=== PATIENT | male | born 1995 | race Caucasian/White ===

== ENCOUNTER 2017-04-10 22:38 | Emergency (ER) | payer OTHER ==
[~2017-04-10] VITALS: Ht 182.9 cm; Wt 107.5 kg
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
[2017-04-10] MEDS ORDERED: QUETIAPINE FUMA50 M1 PO (23:30)
[2017-04-10] MEDS ORDERED: VYVANSE40 M1 PO (23:30)
[2017-04-10] MEDS ORDERED: PRAZOSIN HCL1 M1 PO (23:30)
[2017-04-11 01:04] LABS: ABSOLUTE BASOPHIL COUNT 0.1 /CUMM (0.0-0.2); ABSOLUTE EOSINOPHIL COUNT 0.3 /CUMM (0.0-0.7); ABSOLUTE GRANULOCYTE CT 6.6 /CUMM (1.4-6.5); ABSOLUTE LYMPH COUNT 2.2 /CUMM (1.2-3.4); ABSOLUTE MONOCYTE COUNT 0.9 /CUMM (0.10-0.60); BASOPHIL % 0.8 % (0.0-2.0); EOSINOPHIL % 3.2 % (0-5); GRANULOCYTE % 64.8 % (42.2-75.2); HEMATOCRIT 43.8 % (42-52); MEAN CORPUSCULAR HGB CONC 33.5 G/DL (33.0-37.0); MEAN CORPUSCULAR VOLUME 86.7 FL (80.0-94.0); MEAN PLATELET VOLUME 7.4 FL (7.4-10.4); PLATELET COUNT 229 /CUMM (130-400); RBC DISTRIBUTION WIDTH 12.8 % (11.5-14.5); RED BLOOD CELL CT 5.06 /CUMM (4.70-6.10); WHITE BLOOD CELL COUNT 10.1 /CUMM (4.8-10.8)
--- NOTE | 2017-04-11 01:15 | RADIOLOGY REPORT ---
EXAMINATION: XR PORTABLE CHEST CLINICAL INFORMATION: Shortness of breath COMPARISON: None TECHNIQUE: Portable frontal view of the chest was obtained. FINDINGS: The lungs are clear with no focal consolidation. No evidence of pneumothorax, pulmonary edema, or pleural effusions. The cardiomediastinal silhouette is unremarkable. No acute osseous findings. IMPRESSION: No acute cardiopulmonary findings.
[2017-04-11 02:19] VITALS: BP 111/53
== END 2017-04-11 03:00 ==
LOC: ERH 22:38
PROVIDERS: Pediatrics
DX: F14.10 Cocaine abuse, uncomplicated (principal); M79.1 Myalgia; R11.0 Nausea; F10.10 Alcohol abuse, uncomplicated
CPT/HCPCS: 80307; 93005; 93010; G0480

== ENCOUNTER 2017-04-16 17:53 | Emergency (ER) | payer OTHER ==
[~2017-04-16] VITALS: Ht 182.9 cm; Wt 104.3 kg
[~2017-04-16 17:53] MED LIST: PRAZOSIN HCL1 M1 PO; QUETIAPINE FUMA50 M1 PO; VYVANSE40 M1 PO
[2017-04-16 17:59] VITALS: BP 150/85
--- NOTE | 2017-04-16 18:40 | ED PSYCHIATRIC COMPLAINT ---
History of Present Illness General Chief Complaint: General Adult Stated Complaint: PT IS HAVING SOME ANXIETY Source: patient Exam Limitations: no limitations Vital Signs & Intake/Output Vital Signs & Intake/Output Vital Signs Date Time Temp Pulse Resp B/P B/P Pulse O2 O2 Flow FiO2 Mean Ox Delivery Rate 04/16 1823 99 Room Air 04/16 1759 98.6 94 18 150/85 98 Room Air Room Air ED Intake and Output 04/17 0000 04/16 1200 Intake Total Output Total Balance Patient 230 lb Weight Weight Reported by Patient Measurement Method Allergies Coded Allergies: No Known Allergies (04/10/17) Reconcile Medications Lisdexamfetamine Dimesylate (Vyvanse) 40 MG CAPSULE 1 CAP PO QAM ADHD ( Reported) Prazosin HCl 1 MG CAPSULE 1 CAP PO QPM UNK (Reported) Quetiapine Fumarate 50 MG TABLET 1 TAB PO QPM ANXIETY (Reported) Triage Note: TRIAGE: 21 Y/O MALE BIBA FROM HOME C/O ANXIETY, DEPRESSION, AND HIGH ADRENALINE. REPORTS HIGH STRESSERS AT HOME. AT PRESENT COOPERATIVE, PLEASANT AFFECT. Triage Nurses Notes Reviewed? yes Onset: Abrupt Duration: hour(s): (2-3) Timing: single episode today Severity: mild, moderate Severity Numbers: 6 Associated Symptoms: anxiety HPI: 21-year-old male with no Past medical history brought in by ambulance for evaluation of anxiety. Patient reports that earlier today he was feeling anxious regarding statement made by his father to him. Patient does not want to talk about what this statement was that set him off. Patient currently denies any physical symptoms but reports anxiety. He denies any drug use, suicidal ideation, homicidal ideation. Patient reports that he is physically safe at home. Patient reports that he called 911 to bring into the emergency department so that he could receive medication for anxiety. Really not taking any medications and denies any illicit drug use. Past History Travel History Traveled to [place] past 21 day No Medical History Any Pertinent Medical History? see below for history Neurological: TBI EENT: NONE Cardiovascular: NONE Respiratory: NONE Gastrointestinal: NONE Hepatic: NONE Renal: NONE Musculoskeletal: NONE Psychiatric: anxiety, ADRENILINE Endocrine: NONE Blood Disorders: NONE Cancer(s): NONE [employer]/Reproductive: NONE Surgical History Surgical History: none Psychosocial History What is your primary language Portuguese Tobacco Use: Current Daily Use Daily Tobacco Use Amount/Type: => 5 Cigarettes daily ETOH Use: occasional use Illicit Drug Use: denies illicit drug use Family History Hx Contributory? Yes Review of Systems Review of Systems Constitutional: Reports: no symptoms. EENTM: Reports: no symptoms. Respiratory: Reports: no symptoms. Cardiovascular: Reports: no symptoms. GI: Reports: no symptoms. Genitourinary: Reports: no symptoms. Musculoskeletal: Reports: no symptoms. Skin: Reports: no symptoms. Neurological/Psychological: Reports: see HPI, anxiety. Hematologic/Endocrine: Reports: no symptoms. Immunologic/Allergic: Reports: no symptoms. All Other Systems: Reviewed and Negative Physical Exam Physical Exam General Appearance: well developed/nourished, no apparent distress, alert, awake , comfortable Head: atraumatic, normal appearance Eyes: Bilateral: normal appearance, PERRL, EOMI. Ears, Nose, Throat: normal pharynx, normal ENT inspection, hearing grossly normal Neck: normal inspection, supple, full range of motion Respiratory: normal breath sounds, chest non-tender, no respiratory distress, lungs clear Cardiovascular: regular rate/rhythm, normal peripheral pulses Gastrointestinal: normal bowel sounds, soft, non-tender Extremities: normal range of motion Neurological/Psychiatric: no motor/sensory deficits, awake, alert, normal mood/ affect, calm, oriented x 3 Appearance/Memory/Insight: appropriate appearance, appropriate insight, denies illness Behavoir/Eye Contact/Speech: normal speech, good eye contact Thoughts/Hallucinations: normal thought pattern, no apparent hallucination Skin: intact, normal color, warm/dry SAD PERSONS Done? patient not suicidal Progress Differential Diagnosis: drug intoxication, drug overdose, drug withdrawal, electrolyte abnormality, panic attack, generalized anxiety d/o Plan of Care: Patient left the emergency department after being evaluated by me. Is not clear why he left he did not say anything to anybody. No treatment plan was discussed with patient because he left. No ama form was signed because patient left before he even said he wanted to leave. Departure Departure Disposition: ER WALKOUT Condition: Stable Clinical Impression Primary Impression: Anxiety Referrals: PATIENT HAS NO PRIMARY CARE DR (PCP/Family) Departure Forms: Customer Survey General Discharge Information
== END 2017-04-16 19:35 ==
LOC: ERH 17:53
DX: F41.9 Anxiety disorder, unspecified (principal)